=== PATIENT | female | born 1950 | race Caucasian/White ===

== ENCOUNTER → 2017-02-06 14:17 | Outpatient (CLI) | payer MEDICARE, BC ==
[~2017-02-06 14:17] MED LIST: ASPIRIN EC81 M1 PO; CALCIUM 500 + D1 TAB PO; FIORINAL/CODEIN1 CAP PO; GLUCOSAMINE & C1 CAP PO; HYDROCHLOROTH12.5 M1 PO; K-TAB10 MEQ PO; LEVOTHYROXINE75 MCG PO; MULTIPLE VITAMI1 TA1 PO; OCUVITE TABLET1 TA1 PO; OMEPRAZOLE20 M1 PO; OXYCODONE HCL E20 MG PO; PERCOCET 10/3251 TA1 PO; PRINIVIL10 MG PO; RED YEAST RICE600 MG PO; ROBAXIN-750750 MG PO; ROXICODONE15 MG PO; VITAMIN D2000 UNIT PO; VITAMIN D5000 UNIT PO; XALATAN 0.0052.5 ML RIGHT EYE; tumeric PO
[2017-05-03 04:39] VITALS: BMI 29.6
== END | disposition home or self-care (01) ==
LOC: D.MAMMO 11:00
DX: Z12.31 Encounter for screening mammogram for malignant neoplasm of breast (principal)

== ENCOUNTER 2017-05-02 05:25 | Observation (INO) | payer MEDICARE, BC ==
[2017-05-01 13:12] LABS: HEMATOCRIT 35.6 % (36.0-48.0); HEMOGLOBIN 11.8 g/dL (12-16); MCH 31.1 pg (26.0-34.0); MCHC 33.1 g/dL (31.0-37.0); MCV 93.7 fL (80.0-100.0); MEAN PLATELET VOLUME 9.3 fL (7.4-10.4); RBC 3.8 10x6/uL (4.00-5.40); RDW 14.3 % (11.5-14.5); WBC 5.1 10x3/uL (4.8-10.8)
[2017-05-01 13:19] LABS: CALC OSMOLALITY 274 mosm/kg (275-300); CALCIUM 9.2 mg/dL (8.5-10.1); CARBON DIOXIDE 33.2 mmol/L (21.0-32.0); CHLORIDE - SERUM 98 mmol/L (98-107); CREATININE - SERUM 0.8 mg/dL (0.6-1.3); GLUCOSE 103 mg/dL (74-106); POTASSIUM - SERUM 4.3 mmol/L (3.5-5.1); SODIUM 138 mmol/L (136-145); UREA NITROGEN 9 mg/dL (7-18); eGFR NON AFRICAN AMERICAN 76 mL/min (90-120)
[~2017-05-02] VITALS: Ht 160 cm; Wt 75.9 kg
--- NOTE | ~2017-05-02 | OP ---
PATIENT NAME: ORA MILTON MEDICAL RECORD: [id number] :48 LOCATION:[facility] ADMISSION DATE: SURGEON: SAMUEL STARR MD DATE OF OPERATION: 05/02/2017 PREOPERATIVE DIAGNOSES: Lumbar spinal stenosis with left L3 radiculopathy. POSTOPERATIVE DIAGNOSES: Lumbar spinal stenosis with left L3 radiculopathy. PROCEDURE: Lumbar laminectomy, medial facetectomy, and foraminotomy with sublaminar decompression with bilateral foraminotomies at L2-L3. SURGEON: Samuel Starr MD DESCRIPTION AND TECHNIQUE: After induction of general endotracheal anesthesia, the patient was rolled prone on a [place] frame. Lumbar spine was prepped and draped in usual sterile fashion. Fluoroscopic x-ray and spinal needle localized at the L2-L3 interspace on the left side. A stab incision was created with #11 blade and series of dilators was used to advance the METRx retractor at the L2-L3 interspace on the left side. Flow was confirmed with fluoroscopic x-ray. A microscope and [employer] [place] drill were used to perform laminotomy, medial facetectomy, and foraminotomy at L2-L3 on the left. The spinous process was undermined with the [employer] drill and the METRx retractor was tilted to the opposite side. Hypertrophied ligamentum flavum was removed from the central canal with sublaminar space on the opposite side. Following this, the dura was completely decompressed. Meticulous hemostasis was maintained throughout the wound. The wound was irrigated with copious amounts of Ancef irrigant solution. The fascia was closed with 2-0 Vicryl suture, the subdermal layer was closed with 3-0 Vicryl suture. The skin was reapproximated with kandace. A sterile dressing was applied to the wound. The patient was awakened in good condition, taken to recovery. All counts were reported as correct. Estimated blood loss was minimal. TRANSINT:[id number] Voice Confirmation ID: [id number] DOCUMENT ID: [id number] SAMUEL STARR MD at 1317 CC: [id number] DICTATION DATE: 05/02/17 0943 SCHEDULER CONVEYOR: 05/02/17 1243 [place] [address]
[~2017-05-02 05:25] MED LIST changes: -PERCOCET 10/3251 TA1 PO; -ROBAXIN-750750 MG PO
[2017-05-02 07:19] VITALS: BP 103/60; BMI 29.6
[2017-05-02 20:00] VITALS: BP 99/57
[2017-05-02 22:00] LABS: APPEARANCE CLEAR (CLEAR); BILIRUBIN NEGATIVE (NEGATIVE); COLOR YELLOW (YELLOW); GLUCOSE NEGATIVE (NEGATIVE); KETONE NEGATIVE (NEGATIVE); NITRITE NEGATIVE (NEGATIVE); PROTEIN NEGATIVE (NEGATIVE); UROBILINOGEN NORMAL (NORMAL)
[2017-05-03 04:00] VITALS: BP 135/77
[2017-05-03 04:39] VITALS: Ht 160 cm; Wt 75.9 kg
[2017-05-03 09:40] VITALS: BP 128/74
[2017-05-03] MEDS ORDERED: ROBAXIN-750750 MG PO (11:30)
[2017-05-03] MEDS ORDERED: PERCOCET 10/3251 TA1 PO (11:31)
[2017-05-03 11:48] VITALS: BP 127/73
== END 2017-05-03 12:31 | disposition home or self-care (01) ==
LOC: D.OPS 05:25 → D.MS 16:29 → OBSVTIME 16:29 → D.MS 16:29
PROVIDERS: Anesthesiology; Neurological Surgery
DX: M48.061 Spinal stenosis, lumbar region without neurogenic claudication (principal); M54.16 Radiculopathy, lumbar region